=== PATIENT | female | born 1945 | race Caucasian/White ===

== ENCOUNTER → 2016-12-21 | Day surgery (SDC) | payer MEDICARE ==
[~2016-12-21] MED LIST: APRI0.372 PO; ASPI1TAB69 PO; ATEN50TA PO; ATOR20TA15 PO; DIPH1TAB36 PO; DULO1CAP2 PO; ESTR1TAB PO; LIDOCAINE HCL 1% 30 ML VIAL INFIL ONE; LOSA50TA2 PO; PROPOFOL 200 MG/20 ML AMP IV ONE; SODIUM CHLORIDE 0.9% 10 ML VIAL ONE; TRIAMCINOLONE ACETONIDE 40 MG/ML VIAL NB ONE; [UNRECOGNIZED DRUG - OTHER] PO
--- NOTE | 2016-12-25 14:41 | M6 ---
cc: JIM RAUSCH M.D. Corrected Copy: 12/27/16 DATE: 12/21/2016 DATE OF : 1945. TYPE OF PROCEDURE: Fluoroscopically guided T2-3 interlaminar epidural steroid injection. History and physical was completed and signed. Consent was signed. Procedure site was marked. Medications were listed and reconciled. Pain score was recorded. Allergies were noted. Time out was taken. Fluoroscopy time was recorded where applicable. Sedation was administered or directed by Dr. Rausch. The patient was given oxygen. The patient was monitored by a registered nurse. Total procedure time was greater than 15 minutes. IV was started, blood pressure cuff, pulse oximeter and EKG were applied. The patient was sedated with small amounts of fentanyl and propofol titrated to effect. Vital signs were monitored and remained stable throughout the procedure cervical area was prepped with alcohol and 10% Betadine solution and draped with sterile drapes. Fluoroscopy was used to visualize the T2-T3 interlaminar space. The skin was infiltrated with 1% Xylocaine using a 27 gauge needle then a 3-1/2-inch 18-gauge Wooten needle was advanced using fluoroscopic guidance and the ekbk-pw-dlkjnnpjam technique into the epidural space at T2-T3 slightly to the right of the midline. There was negative aspiration for blood or any other type of fluid and the patient was given 6 mL of normal saline 60 mg of Kenalog. Following the procedure the patient was taken to the recovery room with stable vital signs neurologically intact. W. MD MABEL Olguin/mil /9:21 AM /2:33 PM
== END | disposition home or self-care (01) ==
LOC: PHSDC 08:04
PROVIDERS: ATTEND Pain Medicine Interventional Pain Medicine
DX: M54.12 Radiculopathy, cervical region (principal)
CPT/HCPCS: 62321; 99152; J3010; J3301

== ENCOUNTER → 2017-01-03 | Day surgery (SDC) | payer MEDICARE ==
[~2017-01-03] MED LIST changes: -LIDOCAINE HCL 1% 30 ML VIAL INFIL ONE
--- NOTE | 2017-01-06 10:31 | M6 ---
cc: JIM RAUSCH M.D. DATE 01/03/2017 DATE OF 1945 PROCEDURE Fluoroscopically guided T1-T2 translaminar epidural steroid injection. PROCEDURE NOTE History and physical was completed and signed. Consent was signed. Procedure site was marked. Medications were listed and reconciled. Pain score was recorded. Allergies were noted. Time out was taken. Fluoroscopy time was recorded where applicable. Sedation was administered or directed by Dr. Rausch. The patient was given oxygen. The patient was monitored by a registered nurse. Total procedure time was greater than 15 minutes. IV was started, blood pressure cuff, pulse oximeter and EKG were applied. The patient was placed in the prone position on a Anderson table, sedated with small amounts of Fentanyl and Propofol titrated to effect. Vital signs were monitored and remained stable throughout the procedure. The cervical area was prepped with alcohol and 10% Betadine solution and draped with sterile drapes. Fluoroscopy was used to visualize the interlaminar space at T1-T2. The skin was infiltrated with 1% Xylocaine using a 27 gauge needle. Then a 3-1/2-inch 18-gauge Wooten needle was advanced using fluoroscopic guidance and the axat-uz-knpbqiicrr technique into the epidural space at T1-T2 slightly to the right of the midline. There was negative aspiration for blood or any other type of fluid and the patient was given 6 mL of normal saline and 80 mg of Kenalog. Following this, the patient was taken to the recovery room with stable vital signs neurologically intact. WMD MABEL Schaeffer/TOÑO /9:37 AM /10:30 AM
== END | disposition home or self-care (01) ==
LOC: PHSDC 07:39
PROVIDERS: ATTEND Pain Medicine Interventional Pain Medicine
DX: M54.2 Cervicalgia (principal); M25.512 Pain in left shoulder; M25.511 Pain in right shoulder
CPT/HCPCS: 62321; 99152; J3010; J3301

== ENCOUNTER → 2017-01-20 | Day surgery (SDC) | payer MEDICARE ==
[~2017-01-20] MED LIST changes: +LIDOCAINE HCL 1% PF 30 ML VIAL INFIL ONE; -TRIAMCINOLONE ACETONIDE 40 MG/ML VIAL NB ONE; +TRIAMCINOLONE ACETONIDE 40 MG/ML VIAL NERV BLOCK ONE
--- NOTE | 2017-01-22 19:06 | M6 ---
cc: ZAYDA LI M.D., WILLIAM R. M.D. DATE 01/20/2017 DATE OF 1945. PROCEDURE C7-T1 interlaminar epidural steroid injection right lateral recess. PREPROCEDURE NOTE Ms. Maki has right upper extremity pain extending down into her right hand and somewhat into her left hand and into the thumb. 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 We have performed two cervical epidural steroid injections and the patient comes today to report that most of her upper extremity pain has resolved. The only pain she has now is in her thumbs. We are performing her third cervical epidural steroid injection today and hope for continued improvement. History and physical was completed and signed. Consent was signed. Procedure site was marked. Medications were listed and reconciled. Pain score was recorded. Allergies were noted. Time out was taken. Fluoroscopy time was recorded where applicable. Sedation was administered or directed by Dr. Rausch. The patient was given oxygen. The patient was monitored by a registered nurse. Total procedure time was greater than 15 minutes. IV was started, blood pressure cuff, pulse oximeter and EKG were applied. The patient was placed in the prone position on a Anderson table sedated with small amounts of fentanyl and propofol titrated to effect. Vital signs were monitored and remained stable throughout the procedure. Cervical area was prepped with alcohol and 10% Betadine solution, draped with sterile drapes. Fluoroscopy was used to visualize the C7-T1 translaminar interlaminar space. The skin was infiltrated with 1% Xylocaine using a 27 gauge needle. Then a 3-1/2-inch 18-gauge Wooten needle was advanced using fluoroscopic guidance and the ssth-jh-vknmmhvpjs technique into the epidural space slightly to the right of the midline. There was negative aspiration for blood or any other type of fluid. The patient was given 6 mL of normal saline and 60 mg of Kenalog. Following this, the patient was taken to the recovery room with stable vital signs neurologically intact. W. MD MABEL Olguin/ /7:34 AM /6:58 PM
== END | disposition home or self-care (01) ==
LOC: PHSDC 06:29
PROVIDERS: ATTEND Pain Medicine Interventional Pain Medicine
DX: M79.621 Pain in right upper arm (principal)
CPT/HCPCS: 62321; 99152; J3010; J3301